=== PATIENT | male | born 1975 | race Caucasian/White ===

== ENCOUNTER 2017-03-11 21:22 | Emergency (ER) | payer OTHER ==
--- NOTE | 2017-03-11 21:31 | ED Physician Documentation ---
Upper Extremity Injury - HISTORIAN Historian: patient - HPI Chief Complaint: Upper Extremity Injury Onset: just prior to arrival Where: home Further Comments: yes - ROS CONST: no problems - PAST HX Past History: Rt handed Allergies/Adverse Reactions: Allergies Allergy/AdvReac Type Severity Reaction Status Date / Time morphine AdvReac Hallucinati Verified 02/19/14 01:48 ons Home Medications: Ambulatory Orders Medication Instructions Recorded traMADol HCL [Ultram] 50 mg PO Q6H PRN 02/19/14 Cephalexin [Keflex] 500 mg PO TID #15 capsule 03/11/17 - SOCIAL HX Smoking History: less than 1 pack/day (3-4) Alcohol Use: none Drug Use: none - FAMILY HX Family History: no significant history - VITAL SIGNS Vital Signs: Vital Signs Temp Pulse Resp BP Pulse Ox 145/94 02/19/14 02:23 - REVIEWED ASSESSMENTS Nursing Assessment Reviewed: Yes Vitals Reviewed: Yes Upper Extremity Injury Physic - Physical Exam General Appearance: alert, mild distress Neuro/Vascular/Tendon: no vascular compromise, sensation nml Skin: warm,dry, other (2x1.6cm avulsion wound over the later left 2nd diget over the MP. FROM. Bleeding controled. ) Head/ENT: nml inspection Neck/Back: nml inspection Resp/CVS: chest non-tender, breath sounds nml, heart sounds nml, no resp. distress, lungs clear, reg. rate & rhythm Discharge Clincal Impression: Wound, open, finger Qualifiers: Encounter type: initial encounter Qualified Code(s): S61.209A - Unspecified open wound of unspecified finger without damage to nail, initial encounter Referrals: Primary Doctor,No [Primary Care Provider] - 2 Days Additional Instructions: Dress wound with triple antibiotic ointment or vasoline, cover with Telfa and gauze. Keep dry and clean. Watch for any signs of infection. Follow-up wit your primary care provider in 5-7 days. Take cephalexin as directed for 5 days. Home Medications: Ambulatory Orders traMADol HCL [Ultram] 50 mg PO Q6H PRN 02/19/14 Cephalexin [Keflex] 500 mg PO TID #15 capsule 03/11/17 Disposition: 01 HOME, SELF-CARE Decision to Admit: NO Date of Decison to Admit: 03/11/17 Decision Time: 21:50
[2017-03-11] MEDS: CEPHALEXIN 250 MG CAPSULE PO ONE (21:54)
[2017-03-11] MEDS: DIPH,PERTUSS(ACELL),TET VAC/PF 0.5 ML DISP.SYRIN IM SCH (21:54)
[2017-03-11 22:21] VITALS: BP 134/85
[2017-03-11] MEDS ORDERED: DIPH,PERTUSS(ACELL),TET VAC/PF 0.5 ML DISP.SYRIN IM ONE (22:23)
== END 2017-03-11 22:19 | disposition home or self-care (01) ==
LOC: ED 21:22
DX: S61.209A Unspecified open wound of unspecified finger without damage to nail, initial encounter (principal); X58.XXXA Exposure to other specified factors, initial encounter; Y93.9 Activity, unspecified; Y99.9 Unspecified external cause status
CPT/HCPCS: 90471; 90715; 99283